=== PATIENT | male | born 1950 | race Caucasian/White ===

== ENCOUNTER → 2017-03-02 | Outpatient (CLI) | payer OTHER | LOC: BHFA 14:15 | PROVIDERS: ATTEND Internal Medicine Cardiovascular Disease | DX: I48.91 Unspecified atrial fibrillation (principal); I10 Essential (primary) hypertension; Z79.01 Long term (current) use of anticoagulants ==

== ENCOUNTER → 2017-07-10 | Outpatient (CLI) | payer OTHER | LOC: BHFA 11:00 | PROVIDERS: ATTEND Internal Medicine Cardiovascular Disease | DX: I48.91 Unspecified atrial fibrillation (principal) ==

== ENCOUNTER → 2017-11-21 | Outpatient (CLI) | payer OTHER | LOC: BHFA 09:15 | PROVIDERS: ATTEND Internal Medicine Cardiovascular Disease | DX: I48.91 Unspecified atrial fibrillation (principal) ==

== ENCOUNTER → 2018-01-17 | Outpatient (CLI) | payer OTHER | LOC: FIMAGING 07:54 | PROVIDERS: ATTEND Specialist | DX: I51.7 Cardiomegaly (principal); J43.9 Emphysema, unspecified; J45.909 Unspecified asthma, uncomplicated ==

== ENCOUNTER → 2018-03-12 | Outpatient (CLI) | payer OTHER | LOC: BHFA 08:45 | PROVIDERS: ATTEND Physician Assistant Medical | DX: I10 Essential (primary) hypertension (principal) ==

== ENCOUNTER → 2018-09-12 | Outpatient (CLI) | payer OTHER | LOC: BHFA 10:00 | PROVIDERS: ATTEND Nurse Practitioner Adult Health | DX: I48.0 Paroxysmal atrial fibrillation (principal) ==

== ENCOUNTER → 2018-09-14 | Day surgery (SDC) | payer OTHER ==
[~2018-09-14] MED LIST: ATROPINE SULFATE 1 MG/10 ML SYR IVP ONE; BENZOCAINE UNIT DOSE SPRAY HURRICAINE MM ONE; LIDOCAINE/PRILOCAINE 1 EACH CRTUBE TP ONE; MIDAZOLAM 2 MG/2 ML VIAL IVP ONE; NS 500 ML IV ONE; PROPOFOL 200 MG/20 ML VIAL ONE; fentaNYL 100 MCG/2 ML INJ IVP ONE
[2018-09-14 09:35] LABS: INR 1.39 (0.83-1.16); PROTIME(PATIENT) 17.2 SEC (12.0-15.0)
--- NOTE | 2018-09-14 10:36 | PDANEPAE ---
ANE History of Present Illness A fib for ARLENE/CV ANE Past Medical History - Cardiovascular History Hx Hypertension: No Hx Arrhythmias: Yes Hx Chest Pain: No Hx Coronary Artery / Peripheral Vascular Disease: No Hx CHF / Valvular Disease: No Hx Palpitations: Yes - Pulmonary History Hx COPD: No Hx Asthma/Reactive Airway Disease: No Hx Recent Upper Respiratory Infection: No Hx Oxygen in Use at Home: No Hx Sleep Apnea: No ANE Review of Systems Review of systems is: negative Review of Systems: - Exercise capacity Exercise capacity: >=4 METS ANE Patient History - Allergies Allergies/Adverse Reactions: aspirin [Aspirin] Allergy (Severe, Verified 08/25/09 15:56) Other-Enter Comments - Home Medications Home medications: home medication list seen and reviewed Home Medications: Lisinopril [Zestril 10 mg (RX)] 10 mg PO DAILY 08/13/13 [Last Taken 09/13/18 07: 00] Metoprolol Succinate Xr [Toprol Xl 50 mg (RX)] 50 mg PO DAILY 08/13/13 [Last Taken 09/13/18 07:00] Propafenone HCl [Propafenone HCl ER] 225 mg PO BID 08/13/13 [Last Taken 06:00] Amlodipine Bes/Olmesartan Med 09/14/18 [Last Taken 09/13/18 20:00] Asmanex Hfa 09/14/18 [Last Taken 09/13/18 07:00] Chlorthalidone 25 mg (*) 09/14/18 [Last Taken 09/13/18 20:00] Eliquis 09/14/18 [Last Taken 09/14/18 06:00] Sildenafil Citrate 09/14/18 [Last Taken 08/31/18] - Anes Hx Anes Hx: no prior problems - Smoking Hx Smoking Status: Former smoker ANE Labs/Vital Signs - Labs Result Diagrams: 09/14/18 09:10 - Vital Signs Height: 187.96 cm Weight: 99.79 kg ANE Physical Exam - Airway Neck exam: FROM Mallampati Score: Class 2 Mouth exam: normal dental/mouth exam - Pulmonary Pulmonary: no respiratory distress - Cardiovascular Cardiovascular: regular rate and rhythym - ASA Status ASA Status: II ANE Anesthesia Plan Anesthesia Plan: GA with mask Urgent/Emergent Case: Alexandra raya completed preop but documented later for safe timely pt care
--- NOTE | 2018-09-14 10:37 | POSTANESTH ---
Post Anesthetic Evaluation Cardiovascular Status: Normal, Stable Respiratory Status: Normal, Stable Level of Consciousness/Mental Status: Can Participate in Eval, Alert and Oriented Pain Control: Adequate, Prn Tx Ordered Nausea/Vomiting Control: Adequate, Prn Tx Ordered Complications Possibly Related to Anesthesia: None Noted
--- NOTE | 2018-09-16 09:01 | CPEKG ---
Test Reason : OPEN Blood Pressure : / mmHG Vent. Rate : 110 BPM Atrial Rate : 115 BPM P-R Int : 127 ms QRS Dur : 139 ms QT Int : 405 ms P-R-T Axes : 109 086 -44 degrees QTc Int : 549 ms Sinus tachycardia with irregular rate Nonspecific intraventricular conduction delay Borderline repol abnrm, inferolateral leads Confirmed by Marcus Foster ([id number]) on 09/16/2018 9:00:51 AM Referred By: Confirmed By:Marcus Foster
--- NOTE | 2018-09-16 09:04 | CPEKG ---
Test Reason : OPEN Blood Pressure : / mmHG Vent. Rate : 046 BPM Atrial Rate : 046 BPM P-R Int : 256 ms QRS Dur : 115 ms QT Int : 483 ms P-R-T Axes : 064 073 093 degrees QTc Int : 423 ms Sinus bradycardia Prolonged OR interval Nonspecific intraventricular conduction delay Nonspecific T abnrm, anterolateral leads Heart rates have slowed Confirmed by Marcus Foster ([id number]) on 09/16/2018 9:04:15 AM Referred By: Confirmed By:Marcus Foster
== END | disposition home or self-care (01) ==
LOC: FCATH 08:33
PROVIDERS: ATTEND Internal Medicine Cardiovascular Disease
PROC: B245ZZ4 Ultrasonography of Left Heart, Transesophageal (ICD-10-PCS; principal; 2018-09-14)
PROC: 5A2204Z Restoration of Cardiac Rhythm, Single (ICD-10-PCS; principal; 2018-09-14)
DX: I48.0 Paroxysmal atrial fibrillation (principal); M10.9 Gout, unspecified; N52.9 Male erectile dysfunction, unspecified; I10 Essential (primary) hypertension; J45.20 Mild intermittent asthma, uncomplicated; E66.3 Overweight; Z79.82 Long term (current) use of aspirin; Z79.01 Long term (current) use of anticoagulants; Z87.891 Personal history of nicotine dependence; Z85.828 Personal history of other malignant neoplasm of skin; Z79.899 Other long term (current) drug therapy
CPT/HCPCS: J2704

== ENCOUNTER 2019-02-12 09:55 | Day surgery (SDC) | payer OTHER ==
[2019-02-12] MEDS ORDERED: MIDAZOLAM 2 MG/2 ML VIAL IVP ONE (10:03)
[2019-02-12] MEDS ORDERED: fentaNYL 100 MCG/2 ML INJ IVP ONE (10:03)
[2019-02-12] MEDS ORDERED: ATROPINE SULFATE 1 MG/10 ML SYR IVP ONE (10:03)
[2019-02-12] MEDS ORDERED: NS 500 ML IV ONE (10:03)
[2019-02-12] MEDS ORDERED: NALOXONE HCL 0.4 MG/ML INJ IVP PRN (10:44)
--- NOTE | 2019-02-12 10:44 | PDANEPAE ---
ANE History of Present Illness CV ANE Past Medical History - Cardiovascular History Hx Hypertension: No Hx Arrhythmias: Yes Hx Chest Pain: No Hx Coronary Artery / Peripheral Vascular Disease: No Hx CHF / Valvular Disease: No Hx Palpitations: Yes - Pulmonary History Hx COPD: No Hx Asthma/Reactive Airway Disease: No Hx Recent Upper Respiratory Infection: No Hx Oxygen in Use at Home: No Hx Sleep Apnea: No ANE Review of Systems Review of Systems: ANE Patient History - Allergies Allergies/Adverse Reactions: aspirin [Aspirin] Allergy (Severe, Verified 08/25/09 15:56) Other-Enter Comments - Home Medications Home Medications: Lisinopril [Zestril 10 mg (RX)] 10 mg PO DAILY 08/13/13 [Last Taken 09/13/18 07: 00] Metoprolol Succinate Xr [Toprol Xl 50 mg (RX)] 50 mg PO DAILY 08/13/13 [Last Taken 09/13/18 07:00] Propafenone HCl [Propafenone HCl ER] 225 mg PO BID 08/13/13 [Last Taken 06:00] Amlodipine Bes/Olmesartan Med 09/14/18 [Last Taken 09/13/18 20:00] Asmanex Hfa 09/14/18 [Last Taken 09/13/18 07:00] Chlorthalidone 25 mg (*) 09/14/18 [Last Taken 09/13/18 20:00] Eliquis 09/14/18 [Last Taken 09/14/18 06:00] Sildenafil Citrate 09/14/18 [Last Taken 08/31/18] - Smoking Hx Smoking Status: Former smoker ANE Labs/Vital Signs - Labs Result Diagrams: 02/12/19 10:20 - Vital Signs Height: 187.96 cm Weight: 102.058 kg ANE Physical Exam - Airway Neck exam: FROM Mallampati Score: Class 2 Mouth exam: normal dental/mouth exam - Pulmonary Pulmonary: clear to auscultation - Cardiovascular Cardiovascular: irregularly irregular ANE Anesthesia Plan Anesthesia Plan: GA with mask
[2019-02-12 10:50] LABS: INR 1.47 (0.83-1.16); PROTIME(PATIENT) 17.2 SEC (12.0-15.0)
[2019-02-12] MEDS ORDERED: PROPOFOL 200 MG/20 ML VIAL ONE (11:18)
--- NOTE | 2019-02-12 11:19 | PDGENHP ---
History & Physical Chief Complaint: atrial fibrillation History of Present Illness: persistent atrial fibrillation; on uninterrupted eliquis 5mg bid for >6wks Relevant Physical Exam: A+Ox4, irr irr/NR, no MRG, CTAB, no focal deficits Cardiorespiratory Assessment: persistent AF, on eliquis -> CV
--- NOTE | 2019-02-12 11:27 | EPPROC ---
Electrophysiology Procedure Note: Date: 02/12/2019 Receivable Executive: Gil Velásquez MD Procedures: DC cardioversion of atrial fibrillation -[id number] Indications: 69-year-old male with persistent atrial fibrillation, on uninterrupted Eliquis for greater than 6 weeks Techniques: Following informed consent, the patient was brought to the procedure area in a fasting nonsedated state, in rate controlled atrial fibrillation rhythm. IV sedation was provided by the anesthesiology service. Defibrillation pads were applied to the chest in an anteroposterior orientation. After ensuring adequate sedation, a single 200 joule biphasic R- wave synchronized transcutaneous shock was delivered, resulting in termination of atrial fibrillation and resumption of sinus bradycardia rhythm, with confucianist of normal sinus rhythm after about a minute of observation. The patient tolerated the procedure well. EBL: None Complications: None Assessment: Successful cardioversion of persistent atrial fibrillation to sinus rhythm Plan: Discharge to home, continue Eliquis without interruption for at least 1 month postprocedure, follow-up with Dr. Flores in the [facility]. Patient Problems: Problems Problem Status Onset Atrial fibrillation and flutter Acute Hypertension Acute
--- NOTE | 2019-02-12 11:32 | POSTANESTH ---
Post Anesthetic Evaluation Cardiovascular Status: Normal, Stable Respiratory Status: Normal, Stable Level of Consciousness/Mental Status: Can Participate in Eval, Mildly Sleepy, Arousable Pain Control: Adequate, Prn Tx Ordered Nausea/Vomiting Control: Adequate, Prn Tx Ordered Complications Possibly Related to Anesthesia: None Noted
--- NOTE | 2019-02-12 11:59 | CPEKG ---
Test Reason : OPEN Blood Pressure : / mmHG Vent. Rate : 102 BPM Atrial Rate : 172 BPM P-R Int : 174 ms QRS Dur : 115 ms QT Int : 384 ms P-R-T Axes : 000 081 074 degrees QTc Int : 501 ms Atrial fibrillation Nonspecific intraventricular conduction delay Minimal ST depression, anterolateral leads Confirmed by Bayron Clemons ([id number]) on 02/12/2019 11:58:43 AM Referred By: Enrique Velásquez Confirmed By:Bayron Clemons
--- NOTE | 2019-02-12 12:06 | CPEKG ---
Test Reason : OPEN Blood Pressure : / mmHG Vent. Rate : 056 BPM Atrial Rate : 056 BPM P-R Int : 257 ms QRS Dur : 104 ms QT Int : 447 ms P-R-T Axes : 073 065 088 degrees QTc Int : 432 ms Sinus rhythm Prolonged VA interval with 1st degree AV block Confirmed by Bayron Clemons ([id number]) on 02/12/2019 12:05:58 PM Referred By: Enrique Velásquez Confirmed By:Bayron Clemons
== END 2019-02-12 12:47 | disposition home or self-care (01) ==
LOC: FCATH 09:55
PROVIDERS: ATTEND Internal Medicine Cardiovascular Disease
PROC: 5A2204Z Restoration of Cardiac Rhythm, Single (ICD-10-PCS; principal; 2019-02-12)
DX: I48.1 Persistent atrial fibrillation (principal); Z79.01 Long term (current) use of anticoagulants; I10 Essential (primary) hypertension; E66.3 Overweight; Z87.891 Personal history of nicotine dependence
CPT/HCPCS: J2704